=== PATIENT | female | born 1975 | race Caucasian/White ===

== ENCOUNTER 2017-07-22 11:39 | Emergency (ER) | payer MEDICARE, MEDICAID ==
[~2017-07-22] VITALS: Ht 154.9 cm; Wt 45.4 kg
--- NOTE | 2017-07-22 11:58 | ED Respiratory ---
General Stated Complaint: KINDEY FAILURE, SOB Source: patient, family Exam Limitations: no limitations History of Present Illness Date Seen by Provider: Jul 22, 2017 Time Seen by Provider: 11:58 Initial Comments This 42-year-old female presents with history of increasing shortness of breath. Patient has a history of renal failure and is in need of a third transplant. She's had no associated fever, chills, productive cough, nausea, vomiting, diarrhea, headache, or stiff neck. 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 She is on the transplant list at [facility]. Allergies and Home Medications Allergies Coded Allergies: meperidine (Verified Allergy, Unknown, 07/22/17) morphine (Verified Allergy, Unknown, 07/22/17) Home Medications Mycophenolate Mofetil 200 Mg/1 Ml Susp.recon, 200 MG PO, (Reported) Prednisone 5 Mg Tablet, 5 MG PO, (Reported) Tacrolimus 5 Mg Capsule, 5 MG PO, (Reported) Constitutional: No chills, No fever, malaise, weakness EENTM: no symptoms reported Respiratory: No cough, No hemoptysis, short of breath, No wheezing Cardiovascular: No chest pain, No palpitations Gastrointestinal: No abdominal pain, No diarrhea, No nausea, No vomiting Genitourinary: see HPI, decreased output, No dysuria Musculoskeletal: No back pain Skin: No change in color, No rash Psychiatric/Neurological: No Symptoms Reported Hematologic/Lymphatic: No Symptoms Reported Immunological/Allergic: no symptoms reported Past Rnzqpel-Mtylqw-Iuuolq Hx Patient Social History Recent Foreign Travel: No Contact w/Someone Who Travel: No Reviewed Nursing Assessment Reviewed/Agree w Nursing PMH: Yes Physical Exam Vital Signs Vital Sign - Last 12Hours 07/22/17 12:01 Temp 98.2 Pulse 86 Resp 18 B/P (MAP) 218/134 (162) Capillary Refill : General Appearance: WD/WN, mild distress Eyes: Bilateral Eye Normal Inspection HEENT: PERRL/EOMI, normal ENT inspection Neck: normal inspection Respiratory: lungs clear, normal breath sounds, no respiratory distress Cardiovascular: regular rate, rhythm, other (there is 2+ edema peripherally to the midportion of both lower extremities between the ankle and the knee.) Gastrointestinal: normal bowel sounds, non tender, soft Extremities: normal range of motion, non-tender, normal inspection Neurologic/Psychiatric: no motor/sensory deficits, alert, normal mood/affect, oriented x 3 Skin: normal color, warm/dry Progress/Results/Core Measures Suspected Sepsis SIRS Temperature: Pulse: Respiratory Rate: Laboratory Tests 07/22/17 12:25: White Blood Count 4.1L Blood Pressure / Mean: Laboratory Tests 07/22/17 12:25: Creatinine 5.58H, Platelet Count 76L, Total Bilirubin 0.7 Results/Orders Lab Results Laboratory Tests Test 07/22/17 12:25 07/22/17 13:22 Range/Units White Blood Count 4.1 L 4.3-11.0 10^3/uL Red Blood Count 1.88 L 4.35-5.85 10^6/uL Hemoglobin 5.5 *L 11.5-16.0 G/DL Hematocrit 16 *L 35-52 % Mean Corpuscular Volume 87 80-99 FL Mean Corpuscular Hemoglobin 29 25-34 PG Mean Corpuscular Hemoglobin Concent 34 32-36 G/DL Red Cell Distribution Width 15.0 H 10.0-14.5 % Platelet Count 76 L 130-400 10^3/uL Mean Platelet Volume 11.3 H 7.4-10.4 FL Neutrophils (%) (Auto) 61 42-75 % Lymphocytes (%) (Auto) 26 12-44 % Monocytes (%) (Auto) 8 0-12 % Eosinophils (%) (Auto) 5 0-10 % Basophils (%) (Auto) 1 0-10 % Neutrophils # (Auto) 2.5 1.8-7.8 X 10^3 Lymphocytes # (Auto) 1.0 1.0-4.0 X 10^3 Monocytes # (Auto) 0.3 0.0-1.0 X 10^3 Eosinophils # (Auto) 0.2 0.0-0.3 10^3/uL Basophils # (Auto) 0.0 0.0-0.1 10^3/uL Sodium Level 139 135-145 MMOL/L Potassium Level 3.9 3.6-5.0 MMOL/L Chloride Level 113 H 98-107 MMOL/L Carbon Dioxide Level 10 L 21-32 MMOL/L Anion Gap 16 H 5-14 MMOL/L Blood Urea Nitrogen 100 *H 7-18 MG/DL Creatinine 5.58 H 0.60-1.30 MG/DL Estimat Glomerular Filtration Rate 8 BUN/Creatinine Ratio 18 Glucose Level 85 70-105 MG/DL Calcium Level 7.9 L 8.5-10.1 MG/DL Total Bilirubin 0.7 0.1-1.0 MG/DL Aspartate Amino Transf (AST/SGOT) 13 5-34 U/L Alanine Aminotransferase (ALT/SGPT) 12 0-55 U/L Alkaline Phosphatase 42 40-136 U/L B-Type Natriuretic Peptide 1344.6 H <100.0 PG/ML Total Protein 6.0 L 6.4-8.2 GM/DL Albumin 3.4 3.2-4.5 GM/DL D-Dimer 1.19 H 0.00-0.49 UG/ML My Orders Orders - ORLANDO TREVIÑO MD Chest Pa/Lat (2 View) (07/22/17 11:59) Cbc With Automated Diff (07/22/17 11:59) Fibrin Degradation Products (07/22/17 11:59) BNP (07/22/17 11:59) Ua Culture If Indicated (07/22/17 11:59) Ekg Tracing (07/22/17 11:59) Comprehensive Metabolic Panel (07/22/17 11:59) Vital Signs/I&O Vital Sign - Last 12Hours 07/22/17 12:01 Temp 98.2 Pulse 86 Resp 18 B/P (MAP) 218/134 (162) Capillary Refill : Progress Note : Time: 13:42 Progress Note The patient's laboratory evaluation demonstrated a BUN of 100 and a creatinine of 6. The patient's BNP was elevated at approximately 1500. Chest x-ray demonstrated no acute evidence of CHF. EKG demonstrated a normal sinus rhythm without any acute current of injury or dysrhythmia. I placed call to the patient's hospital in [facility], which was full and did not have the ability to care for the patient. I placed a call to [facility] in [place] and I am awaiting their return call for transfer of the patient for emergent probable peritoneal dialysis. accepted the patient in transfer. The patient and requested transfer by private vehicle. Departure Impression Impression: Primary Impression: Renal failure Qualified Codes: N17.9 - Acute kidney failure, unspecified Disposition: HOME, SELF-CARE Condition: Unchanged Transfer Time Spoke to Accepting Phy: 15:[address] Bland at [facility] Transfer Time: 15:11 Transfer Facility: [facility] Method of Transfer: Private Vehicle Departure-Patient Inst. Referrals: NO,LOCAL PHYSICIAN (PCP/Family) Primary Care Physician ORLANDO TREVIÑO MD Jul 22, 2017 11:58
[2017-07-22] MEDS ORDERED: MYCO200S PO (12:04)
[2017-07-22] MEDS ORDERED: PRED5TAB PO (12:04)
[2017-07-22] MEDS ORDERED: TACR5CAP PO (12:04)
--- NOTE | 2017-07-22 12:18 | Diagnostic Imaging Report ---
Indication: Shortness of breath x3 weeks. History of kidney failure. Findings: There is obstructive pulmonary disease bilaterally. There are no consolidated infiltrates. No interstitial lung disease is seen. The heart is upper limits of normal. There is no hilar adenopathy. No pulmonary edema. Mild scoliosis noted of the thoracolumbar spine. IMPRESSION: There is mild bilateral hyperaeration of lungs with no acute infiltrates demonstrated. Dictated by: Dictated on workstation # [id number]
[2017-07-22 12:37] LABS: BASOPHILS % (AUTO) 1 % (0-10); EOSINOPHILS # (AUTO) 0.2 10^3/uL (0.0-0.3); EOSINOPHILS % (AUTO) 5 % (0-10); LYMPHOCYTES % (AUTO) 26 % (12-44); MEAN CORPUSCULAR HEMOGLOBIN 29 PG (25-34); MEAN CORPUSCULAR HGB CONC 34 G/DL (32-36); MEAN CORPUSCULAR VOLUME 87 FL (80-99); MEAN PLATELET VOLUME 11.3 FL (7.4-10.4); MONOCYTES # (AUTO) 0.3 X 10^3 (0.0-1.0); MONOCYTES % (AUTO) 8 % (0-12); NEUTROPHILS # (AUTO) 2.5 X 10^3 (1.8-7.8); NEUTROPHILS % (AUTO) 61 % (42-75); PLATELET COUNT 76 10^3/uL (130-400); RED BLOOD COUNT 1.88 10^6/uL (4.35-5.85); WHITE BLOOD COUNT 4.1 10^3/uL (4.3-11.0)
[2017-07-22 12:55] LABS: HEMATOCRIT 16 % (35-52); HEMOGLOBIN 5.5 G/DL (11.5-16.0)
[2017-07-22 12:58] LABS: ALBUMIN 3.4 GM/DL (3.2-4.5); BILIRUBIN,TOTAL 0.7 MG/DL (0.1-1.0); CALCIUM 7.9 MG/DL (8.5-10.1); CREATININE SERUM 5.58 MG/DL (0.60-1.30); POTASSIUM 3.9 MMOL/L (3.6-5.0)
[2017-07-22 15:51] LABS: BILIRUBIN,URINE NEGATIVE (NEGATIVE); CLARITY,URINE SLIGHTLY CLOUDY; COLOR,URINE YELLOW; GLUCOSE, URINE (UA) NEGATIVE (NEGATIVE); KETONES,URINE NEGATIVE (NEGATIVE); LEUKOCYTE ESTERASE ,URINE 3+ (NEGATIVE); NITRITE,URINE NEGATIVE (NEGATIVE); PH,URINE 7 (5-9); PROTEIN,URINE 4+ (NEGATIVE); UROBILINOGEN,URINE NORMAL (NORMAL)
[2017-07-22 15:52] VITALS: BP 212/119
[2017-07-22 16:12] LABS: BACTERIA,URINE FEW /HPF; WBC,URINE 50-100 /HPF
== END 2017-07-22 15:52 | disposition home or self-care (01) ==
LOC: ER 11:42
DX: N19 Unspecified kidney failure (principal); Z94.0 Kidney transplant status
CPT/HCPCS: 36415; 71046; 80053; 81000; 83880; 85025; 85379; 87088; 93005

== ENCOUNTER 2017-08-04 17:55 | Emergency (ER) | payer MEDICARE, MEDICAID ==
[~2017-08-04] VITALS: Ht 152.4 cm; Wt 51.7 kg
[~2017-08-04 17:55] MED LIST: MYCO200S PO; PRED5TAB PO; TACR5CAP PO
--- NOTE | 2017-08-04 19:15 | ED Cardiac General ---
History of Present Illness General Chief Complaint: Allergic Reaction Stated Complaint: L SIDE SWELLING Nursing Triage Note: PATIENT STATES THAT SHE WOKE UP IN THE MIDDLE OF THE NIGHT AND NOTICED HER TONGUE WAS SWOLLEN. LATER NOTICED HER FACE WAS SWOLLEN. Source: patient, other Exam Limitations: no limitations History of Present Illness Date Seen by Provider: Aug 04, 2017 Time Seen by Provider: 19:00 Initial Comments Patient presents to ER with some complaints of swelling in her tongue started about 4:00 this morning when she woke up she was not having any problems breathing or swallowing her own secretions or drinking however the patient decided to wait it out and see if it would go away. Her tongue swelling did go down however her face swelling got worse as well as her left upper extremity. She says she's had a history of a clot in her left upper extremity. She has a double-lumen dialysis catheter in her right subclavian as well as a history of having 2 kidney transplants and is on the list for a third transplant from [facility]. She says she got home from the hospital 2 days ago where she was transferred because of shortness of breath fluid overload picture to [facility] and from there was transferred up to [facility] where her transplant team was. She says since coming home they have put her on prednisone 40 mg a day for a couple weeks on a taper as well as switched her from CellCept to Prograf but she's not sure why the change that. She is not on any blood thinners. She denies any trauma. She says she was laying on her left side when she woke up with the swelling in her left arm face and neck. The edema in her legs is not much worse than usual she says. Patient denies any shortness of breath, chest pain, cough, fevers, chills, nausea, vomiting, abdominal pain or diarrhea or constipation. Allergies and Home Medications Allergies Coded Allergies: meperidine (Verified Allergy, Unknown, 07/22/17) morphine (Verified Allergy, Unknown, 07/22/17) Home Medications Mycophenolate Mofetil 200 Mg/1 Ml Susp.recon, 200 MG PO, (Reported) Prednisone 5 Mg Tablet, 5 MG PO, (Reported) Tacrolimus 5 Mg Capsule, 5 MG PO, (Reported) Review of Systems Constitutional: No chills, No fever EENTM: No Blurred Vision, No Double Vision Respiratory: Denies Cough, Denies Shortness of Air Cardiovascular: See HPI, Edema, Denies Lightheadedness, Denies Palpitations Gastrointestinal: Denies Abdomen Distended, Denies Abdominal Pain Genitourinary: Denies Burning, Denies Discharge Musculoskeletal: No back pain, No joint pain Skin: No pruritus, No rash Psychiatric/Neurological: Denies Headache, Denies Numbness Past Kyhnral-Rzcjol-Nbuxba Hx Patient Social History Alcohol Use: Denies Use Recreational Drug Use: No Smoking Status: Never a Smoker 2nd Hand Smoke Exposure: No Recent Foreign Travel: No Contact w/Someone Who Travel: No Recent Infectious Disease Expo: No Surgeries History of Surgeries: Yes (KIDNEY TRANSPLANT) Surgeries: Orthopedic Respiratory History of Respiratory Disorde: No Cardiovascular History of Cardiac Disorders: No Neurological History of Neurological Disord: No Genitourinary History of Genitourinary Disor: Yes Genitourinary Disorders: Kidney Infection, Renal Failure Gastrointestinal History of Gastrointestinal Di: No Musculoskeletal History of Musculoskeletal Dis: Yes Endocrine History of Endocrine Disorders: No HEENT History of HEENT Disorders: No Cancer History of Cancer: No Psychosocial History of Psychiatric Problem: No Blood Transfusions History of Blood Disorders: No Physical Exam Vital Signs Vital Sign - Last 12Hours 08/04/17 18:42 Temp 98.0 Pulse 87 Resp 20 B/P (MAP) 211/107 (141) Pulse Ox 98 O2 Delivery Room Air Capillary Refill : Less Than 3 Seconds General Appearance: No Apparent Distress, Thin HEENT: PERRL/EOMI, TMs Normal, Normal ENT Inspection, Pharynx Normal, No Tonsillar Enlargement (nonswollen tongue without any lesion) Neck: Full Range of Motion, Non Tender, Other (left-sided edematous swelling) Respiratory: Chest Non Tender, Lungs Clear, Normal Breath Sounds, No Accessory Muscle Use, No Respiratory Distress Cardiovascular: Regular Rate, Rhythm, Other (bilateral lower extremity edema 1 + pitting edema up to the knees. Calves are nontender, nonerythematous without cords palpable and is negative for Homans sign.) Gastrointestinal: Normal Bowel Sounds, Non Tender, Soft Extremity: Other (some swelling in the left shoulder, neck and upper extremity with a 1 out of 4 pulse left radial compared to a 2 out of 4 pulse palpable at right radial.) Neurologic/Psychiatric: Alert, Oriented x3 Skin: Normal Color, Warm/Dry Progress/Results/Core Measures Results/Orders Lab Results Laboratory Tests Test 08/04/17 19:33 Range/Units White Blood Count 6.6 4.3-11.0 10^3/uL Red Blood Count 2.66 L 4.35-5.85 10^6/uL Hemoglobin 7.8 L 11.5-16.0 G/DL Hematocrit 23 L 35-52 % Mean Corpuscular Volume 87 80-99 FL Mean Corpuscular Hemoglobin 29 25-34 PG Mean Corpuscular Hemoglobin Concent 34 32-36 G/DL Red Cell Distribution Width 13.7 10.0-14.5 % Platelet Count 54 L 130-400 10^3/uL Mean Platelet Volume 10.3 7.4-10.4 FL Neutrophils (%) (Auto) 81 H 42-75 % Lymphocytes (%) (Auto) 12 12-44 % Monocytes (%) (Auto) 5 0-12 % Eosinophils (%) (Auto) 3 0-10 % Basophils (%) (Auto) 0 0-10 % Neutrophils # (Auto) 5.3 1.8-7.8 X 10^3 Lymphocytes # (Auto) 0.8 L 1.0-4.0 X 10^3 Monocytes # (Auto) 0.3 0.0-1.0 X 10^3 Eosinophils # (Auto) 0.2 0.0-0.3 10^3/uL Basophils # (Auto) 0.0 0.0-0.1 10^3/uL Prothrombin Time 13.5 12.2-14.7 SEC INR Comment 1.0 0.8-1.4 Activated Partial Thromboplast Time 27 24-35 SEC Sodium Level 137 135-145 MMOL/L Potassium Level 3.2 L 3.6-5.0 MMOL/L Chloride Level 101 98-107 MMOL/L Carbon Dioxide Level 25 21-32 MMOL/L Anion Gap 11 5-14 MMOL/L Blood Urea Nitrogen 32 H 7-18 MG/DL Creatinine 2.63 H 0.60-1.30 MG/DL Estimat Glomerular Filtration Rate 20 BUN/Creatinine Ratio 12 Glucose Level 94 70-105 MG/DL Calcium Level 7.3 L 8.5-10.1 MG/DL Magnesium Level 1.9 1.8-2.4 MG/DL Total Bilirubin 0.9 0.1-1.0 MG/DL Aspartate Amino Transf (AST/SGOT) 26 5-34 U/L Alanine Aminotransferase (ALT/SGPT) 33 0-55 U/L Alkaline Phosphatase 53 40-136 U/L Troponin I < 0.30 <0.30 NG/ML C-Reactive Protein High Sensitivity 0.59 H 0.00-0.50 MG/DL B-Type Natriuretic Peptide 970.7 H <100.0 PG/ML Total Protein 5.3 L 6.4-8.2 GM/DL Albumin 3.1 L 3.2-4.5 GM/DL My Orders Orders - ALEJANDRINA ALATORRE Sekou BNP (08/04/17 19:02) Cbc With Automated Diff (08/04/17 19:02) Comprehensive Metabolic Panel (08/04/17 19:02) Hs C Reactive Protein (08/04/17 19:02) Magnesium (08/04/17 19:02) Protime With Inr (08/04/17 19:02) Partial Thromboplastin Time (08/04/17 19:02) Troponin I (08/04/17 19:02) Chest Pa/Lat (2 View) (08/04/17 19:02) Us Venous Upper Ext Lt (08/04/17 19:15) Us Left Up Ext Arterial [id number] (08/04/17 19:23) Ekg Tracing (08/04/17 19:27) Ct Angio Chest W (08/04/17 21:59) Vital Signs/I&O Vital Sign - Last 12Hours 08/04/17 18:42 Temp 98.0 Pulse 87 Resp 20 B/P (MAP) 211/107 (141) Pulse Ox 98 O2 Delivery Room Air Blood Pressure Mean: 141 Progress Note #1: Time: 19:21 Progress Note We have concern for possible DVT upper extremity that's causing swelling in her head neck and upper extremity. Because the decreased pulse a that maybe there is a compressive feature that's actually cutting off arterial flows were in order an ultrasound arterial just make sure there is good blood flow to that extremity however her Refill is less than 3 seconds on the left arm as well as it is warm and pulses are palpable 1 out of 4. We have discussed her clinical findings and the best possible imaging modalities with Dr. Sheth, radiology. Progress Note #2: Time: 20:33 Progress Note Hemoglobin is improved significantly from her last stay where it was 5. Progress Note #3: Time: 22:29 Progress Note After 2 attempts to get an IV failed the patient is saying that she would prefer to continue this outpatient workup. She has normal vital signs and is otherwise probably okay to get this workup outpatient however we will give her strict return precautions. She has a physician at [facility] and she will call that Monday morning to continue this workup. ECG Initial ECG Impression Date: Aug 04, 2017 Initial ECG Impression Time: 19:53 Initial ECG Rate: 72 Initial ECG Rhythm: Normal Sinus Initial ECG Intervals: MA (105) Initial ECG Impression: Normal, Nonspecific Changes Initial ECG Comparisson: Unchanged Comment No T-wave elevation or depression noted. Diagnostic Imaging Diagonstic Imaging: Ultrasound Plain Films/CT/US/NM/MRI: other (venous and arterial upper extremity left) Comments [facility] [place] [place] NAME: FARHAN CESAR [facility] REC#: [id number] PT STATUS: REG ER : 1975 PHYSICIAN: ALEJANDRINA ALATORRE MD ADMIT DATE: 08/04/17/ER Draft Date of Exam:08/04/17 US VENOUS UPPER EXT LT PROCEDURE: US venous upper extremity left. TECHNIQUE: Multiple realtime grayscale images were obtained of left upper extremity in various projections. Duplex Doppler and and color Doppler images were also obtained. INDICATION: Left upper extremity swelling Grayscale and color Doppler evaluation of left upper extremity deep veins reveal no intraluminal filling defect. There is normal venous flow. There is normal compressibility and response to augmentation. Venous flow in the left internal jugular vein is also confirmed. Impression: No ultrasound evidence of left upper extremity deep venous thrombosis. Dictated on workstation # [id number] Dict: 08/04/172039 Trans: 08/04/172041 [email or web address] [id number] Interpreted by: AIME SHETH MD Electronically signed by: [facility] [place] [place] NAME: FARHAN CESAR [facility] REC#: [id number] PT STATUS: REG ER : 1975 PHYSICIAN: ALEJANDRINA ALATORRE MD ADMIT DATE: 08/04/17/ER Draft Date of Exam:08/04/17 US LEFT UP EXT ARTERIAL [id number] INDICATION: Decreased left wrist pulses Grayscale and color Doppler evaluation of the left upper extremity arteries are performed with spectral analysis. There are normal arterial waveforms throughout the left upper extremity without evidence of filling defect or occlusion. No focal velocity elevation is identified to indicate a significant stenosis. No perivascular fluid collection is identified. IMPRESSION: Unremarkable left upper extremity arterial Doppler. Dictated on workstation # [id number] Dict: 08/04/172038 Trans: 08/04/172040 ABIGAIL [id number] Interpreted by: AIME SHETH MD Electronically signed by: Reviewed: Reviewed by Me, Discussed w/Radiologist Diagonstic Imaging: Xray Plain Films/CT/US/NM/MRI: chest (2v) Comments [facility] [place], [place] NAME: FARHAN CESAR [facility] REC#: [id number] PT STATUS: REG ER : 1975 PHYSICIAN: ALEJANDRINA ALATORRE MD ADMIT DATE: 08/04/17/ER Draft Date of Exam:08/04/17 CHEST PA/LAT (2 VIEW) INDICATION: Allergic reaction and upper extremity swelling PA and lateral views of the chest are obtained. Since 07/22/2017, there has been placement of dual-lumen right jugular central venous catheter with tip projecting over the lower superior vena cava. There has been increase in left basilar atelectasis and/or pneumonitis and associated left pleural fluid. There is a small amount of right pleural fluid as well. No pneumothorax is identified. There appear to be postoperative changes in the left axilla. IMPRESSION: Increasing left basilar atelectasis and/or pneumonitis with bilateral pleural fluid, greater on the left. There may be mild pulmonary venous congestion suggesting a component of congestive heart failure or hypervolemia and clinical correlation is recommended. Dictated on workstation # [id number] Dict: 08/04/172045 Trans: 08/04/172051 ABIGAIL [id number] Interpreted by: AIME SHETH MD Electronically signed by: Reviewed: Reviewed by Me Consults Consults : Consulting Physician: Gabby MORALES MD Consults Notes Discussed the case lab imaging and findings and he feels that when the patient had her double lumen dialysis catheter in her left subclavian it may have caused some stricturing that has progressed over time versus possible breast bowel syndrome and would recommend a CT angiogram with venous phase specifically also to evaluate for possible thoracic outlet syndrome. Departure Impression Impression: Primary Impression: Swelling of left side of face Additional Impression: Swelling of left upper extremity Disposition: HOME, SELF-CARE Condition: Stable Departure-Patient Inst. Decision time for Depature: 22:31 Referrals: NO,LOCAL PHYSICIAN (PCP/Family) Primary Care Physician Patient Instructions: Thoracic Outlet Syndrome (DC) Add. Discharge Instructions: Please follow up Monday morning with your primary care physician with a phone call to get this workup of your left sided face and upper extremity swelling worked up. Our concern is he may have either thoracic outlet syndrome or some kind of venous constriction secondary to previous catheter placements. Our recommendation is to do a CT angiogram looking at the venous phase. If your symptoms get worse or he becomes short of breath or start having chest pain or any other worrisome symptoms such as fever, nausea vomiting etc. please return to the ER immediately. Keep the swollen sides of your face and arm elevated at all times to allow gravity to help drain. All discharge instructions reviewed with patient and/or family. Voiced understanding. ALEJANDRINA ALATORRE Aug 04, 2017 19:15
[2017-08-04 19:42] LABS: BASOPHILS % (AUTO) 0 % (0-10); EOSINOPHILS # (AUTO) 0.2 10^3/uL (0.0-0.3); EOSINOPHILS % (AUTO) 3 % (0-10); HEMATOCRIT 23 % (35-52); HEMOGLOBIN 7.8 G/DL (11.5-16.0); LYMPHOCYTES # (AUTO) 0.8 X 10^3 (1.0-4.0); LYMPHOCYTES % (AUTO) 12 % (12-44); MEAN CORPUSCULAR HEMOGLOBIN 29 PG (25-34); MEAN CORPUSCULAR HGB CONC 34 G/DL (32-36); MEAN CORPUSCULAR VOLUME 87 FL (80-99); MEAN PLATELET VOLUME 10.3 FL (7.4-10.4); MONOCYTES # (AUTO) 0.3 X 10^3 (0.0-1.0); MONOCYTES % (AUTO) 5 % (0-12); NEUTROPHILS # (AUTO) 5.3 X 10^3 (1.8-7.8); NEUTROPHILS % (AUTO) 81 % (42-75); PLATELET COUNT 54 10^3/uL (130-400); RED BLOOD COUNT 2.66 10^6/uL (4.35-5.85); RED CELL DISTRIBUTION WIDTH 13.7 % (10.0-14.5); WHITE BLOOD COUNT 6.6 10^3/uL (4.3-11.0)
[2017-08-04 19:53] LABS: PROTHROMBIN TIME PATIENT 13.5 SEC (12.2-14.7)
[2017-08-04 20:24] LABS: ALANINE AMINOTRANSFERASE 33 U/L (0-55); ALBUMIN 3.1 GM/DL (3.2-4.5); ALKALINE PHOSPHATASE 53 U/L (40-136); BILIRUBIN,TOTAL 0.9 MG/DL (0.1-1.0); BUN/CREATININE RATIO 12; CALCIUM 7.3 MG/DL (8.5-10.1); CARBON DIOXIDE 25 MMOL/L (21-32); CHLORIDE 101 MMOL/L (98-107); CREATININE SERUM 2.63 MG/DL (0.60-1.30); GFR ESTIMATED 20; GLUCOSE 94 MG/DL (70-105); MAGNESIUM 1.9 MG/DL (1.8-2.4); POTASSIUM 3.2 MMOL/L (3.6-5.0); SODIUM 137 MMOL/L (135-145); TOTAL PROTEIN 5.3 GM/DL (6.4-8.2)
--- NOTE | 2017-08-04 20:42 | Diagnostic Imaging Report ---
INDICATION: Decreased left wrist pulses Grayscale and color Doppler evaluation of the left upper extremity arteries are performed with spectral analysis. There are normal arterial waveforms throughout the left upper extremity without evidence of filling defect or occlusion. No focal velocity elevation is identified to indicate a significant stenosis. No perivascular fluid collection is identified. IMPRESSION: Unremarkable left upper extremity arterial Doppler. Dictated by: Dictated on workstation # [id number]
--- NOTE | 2017-08-04 20:43 | Diagnostic Imaging Report ---
PROCEDURE: US venous upper extremity left. TECHNIQUE: Multiple realtime grayscale images were obtained of left upper extremity in various projections. Duplex Doppler and and color Doppler images were also obtained. INDICATION: Left upper extremity swelling Grayscale and color Doppler evaluation of left upper extremity deep veins reveal no intraluminal filling defect. There is normal venous flow. There is normal compressibility and response to augmentation. Venous flow in the left internal jugular vein is also confirmed. Impression: No ultrasound evidence of left upper extremity deep venous thrombosis. Dictated by: Dictated on workstation # [id number]
--- NOTE | 2017-08-04 20:52 | Diagnostic Imaging Report ---
INDICATION: Allergic reaction and upper extremity swelling PA and lateral views of the chest are obtained. Since 07/22/2017, there has been placement of dual-lumen right jugular central venous catheter with tip projecting over the lower superior vena cava. There has been increase in left basilar atelectasis and/or pneumonitis and associated left pleural fluid. There is a small amount of right pleural fluid as well. No pneumothorax is identified. There appear to be postoperative changes in the left axilla. IMPRESSION: Increasing left basilar atelectasis and/or pneumonitis with bilateral pleural fluid, greater on the left. There may be mild pulmonary venous congestion suggesting a component of congestive heart failure or hypervolemia and clinical correlation is recommended. Dictated by: Dictated on workstation # [id number]
[2017-08-04 22:45] VITALS: BP 175/101
== END 2017-08-04 22:43 | disposition home or self-care (01) ==
LOC: EDUNIT# 17:55 → ER 17:56
DX: R22.1 Localized swelling, mass and lump, neck (principal); R22.32 Localized swelling, mass and lump, left upper limb; Z87.440 Personal history of urinary (tract) infections; Z94.0 Kidney transplant status; Z79.52 Long term (current) use of systemic steroids; Z96.0 Presence of urogenital implants
CPT/HCPCS: 36415; 71046; 80053; 83735; 83880; 84484; 85025; 85610; 85730; 86141; 93931

== ENCOUNTER 2017-08-05 05:48 | Emergency (ER) | payer MEDICARE, MEDICAID ==
[~2017-08-05] VITALS: Ht 152.4 cm; Wt 51.7 kg
--- NOTE | 2017-08-05 06:42 | ED General ---
General Chief Complaint: General Problems/Pain Stated Complaint: DIALYSIS SITE BLEEDING Nursing Triage Note: PT TO ED 7 W/ C/O BLEEDING NOTED TO DIALYSIS CATH TO [facility]. STATES SHE WOKE THIS AM ET NOTICED BLEEDING. DENIES INJURY Nursing Sepsis Screen: No Definite Risk Source of Information: Patient Exam Limitations: No Limitations History of Present Illness Date Seen by Provider: Aug 05, 2017 Time Seen by Provider: 06:15 Initial Comments This 42-year-old woman presents to the emergency room from home with complaints of bleeding from her dialysis catheter site of the right chest. She woke with the bleeding and became concerned. She has a clot around the catheter but no active bleeding on arrival. She states the bleeding started in her sleep so she is uncertain if she disrupted the catheter in any way. She has no unusual pain, inflammation, or other problems around the site. She was seen last night by Dr. Gross for unilateral swelling. She no longer complains of those symptoms. See his note for more details. Patient had been seen in this ER July 22 with severe renal failure and anemia. She had been transferred to [place] at that time. While at [place] the dialysis catheter was placed last week according to patient. Review of patient's chart notes that she has had thrombocytopenia on both of her prior visits. The cause of this is uncertain but she is on antirejection therapy for renal transplant. These medications may be related to her anemia and thrombocytopenia. Allergies and Home Medications Allergies Coded Allergies: meperidine (Verified Allergy, Unknown, 07/22/17) morphine (Verified Allergy, Unknown, 07/22/17) Home Medications Mycophenolate Mofetil 200 Mg/1 Ml Susp.recon, 200 MG PO, (Reported) Prednisone 5 Mg Tablet, 5 MG PO, (Reported) Tacrolimus 5 Mg Capsule, 5 MG PO, (Reported) Constitutional: no symptoms reported Cardiovascular: see HPI Genitourinary: see HPI : No Skin: see HPI Psychiatric/Neurological: No Symptoms Reported Hematologic/Lymphatic: See HPI Past Deoxmtx-Kbppgy-Ppsliw Hx Patient Social History Alcohol Use: Denies Use Recreational Drug Use: No Smoking Status: Never a Smoker 2nd Hand Smoke Exposure: No Recent Foreign Travel: No Contact w/Someone Who Travel: No Recent Infectious Disease Expo: No Recent Hopitalizations: No Physical Abuse: No Sexual Abuse: No Mistreated: No Fear: No Surgeries History of Surgeries: Yes (KIDNEY TRANSPLANT) Surgeries: Kidney Transplant, Orthopedic, Vascular Surgery (double-lumen dialysis catheter in the right chest) Respiratory History of Respiratory Disorde: No Cardiovascular History of Cardiac Disorders: No Neurological History of Neurological Disord: No Genitourinary History of Genitourinary Disor: Yes Genitourinary Disorders: Kidney Infection, Renal Failure (end-stage renal failure) Gastrointestinal History of Gastrointestinal Di: No Musculoskeletal 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) Endocrine History of Endocrine Disorders: No HEENT History of HEENT Disorders: No Cancer History of Cancer: No Psychosocial History of Psychiatric Problem: No Suicide Risk Score: 0 Blood Transfusions History of Blood Disorders: Yes (anemia, thrombocytopenia) Physical Exam Vital Signs Vital Sign - Last 12Hours 08/05/17 06:14 Temp 99.1 Pulse 95 Resp 20 B/P (MAP) 167/106 (126) Pulse Ox 97 O2 Delivery Room Air Capillary Refill : Less Than 3 Seconds General Appearance: No Apparent Distress, WD/WN HEENT: Normal ENT Inspection Respiratory: Lungs Clear, Normal Breath Sounds, No Accessory Muscle Use, No Respiratory Distress Cardiovascular: Regular Rate, Rhythm, No Edema, No Murmur Extremity: Other (congenital malformation of the upper extremities) Neurologic/Psychiatric: Alert, Oriented x3, No Motor/Sensory Deficits, Normal Mood/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 Clot formed around the catheter site.) Progress/Results/Core Measures Suspected Sepsis Recent Fever Within 48 Hours: No Infection Criteria Present: None New/Unexplained Altered Menta: No Sepsis Screen: No Definite Risk Sepsis Diagnosis: SIRS Temperature:99.1 Pulse: 95 Respiratory Rate: 20 Blood Pressure 167 /106 Mean: 126 Results/Orders Vital Signs/I&O Vital Sign - Last 12Hours 08/05/17 06:14 Temp 99.1 Pulse 95 Resp 20 B/P (MAP) 167/106 (126) Pulse Ox 97 O2 Delivery Room Air Capillary Refill : Less Than 3 Seconds Blood Pressure Mean: 126 Progress Note : Progress Note The catheter site was cleaned with chlorhexidine and water to allow for better inspection of the sutures and insertion site. Sutures are intact. With cleaning there was some very subtle oozing of blood from around the catheter insertion that resolved with brief direct pressure on the wound site. There was no active bleeding at the time of discharge. Chart was reviewed and patient was noted to have a trend of thrombocytopenia, possibly related to her medications. This was discussed with her and the importance of follow-up was emphasized. See discharge instructions. She was advised to call her doctors on Monday and read the discharge instructions to them. Departure Impression Impression: Primary Impression: Postoperative hemorrhage from incision Additional Impression: Thrombocytopenia Disposition: HOME, SELF-CARE Condition: Improved Departure-Patient Inst. Decision time for Depature: 06:30 Referrals: NO,LOCAL PHYSICIAN (PCP/Family) Primary Care Physician Patient Instructions: NO INSTRUCTIONS GIVEN Add. Discharge Instructions: If bleeding resumes, apply direct pressure with some sterile gauze. If bleeding does not resolve after 10 minutes of direct pressure, or if bleeding is severe, return to the emergency room. Your platelets are low (thrombocytopenia). This can impair your bodies ability to stop the bleeding and clot blood. This needs to be monitored very closely by your physicians. Please contact both of your doctors on Monday for follow-up. You should be seen by one of your physicians early next week as soon as possible. Please present these discharge instructions to your doctors. All discharge instructions reviewed with patient and/or family. Voiced understanding. LEOBARDO RAMON MD Aug 05, 2017 06:42
[2017-08-05 06:56] VITALS: BP 0/0
== END 2017-08-05 06:56 | disposition home or self-care (01) ==
LOC: EDUNIT# 05:48 → ER 05:50
DX: T81.89XA Other complications of procedures, not elsewhere classified, initial encounter (principal); D72.829 Elevated white blood cell count, unspecified; N18.9 Chronic kidney disease, unspecified; Z99.2 Dependence on renal dialysis; Z88.5 Allergy status to narcotic agent; Z79.52 Long term (current) use of systemic steroids; Z94.0 Kidney transplant status
CPT/HCPCS: 99281

== ENCOUNTER 2017-08-10 23:09 | Emergency (ER) | payer MEDICARE, MEDICAID ==
[~2017-08-10] VITALS: Ht 152.4 cm; Wt 51.7 kg
[2017-08-10 23:57] LABS: BASOPHILS % (AUTO) 0 % (0-10); EOSINOPHILS # (AUTO) 0.2 10^3/uL (0.0-0.3); EOSINOPHILS % (AUTO) 4 % (0-10); LYMPHOCYTES # (AUTO) 1.2 X 10^3 (1.0-4.0); LYMPHOCYTES % (AUTO) 22 % (12-44); MEAN CORPUSCULAR HEMOGLOBIN 29 PG (25-34); MEAN CORPUSCULAR HGB CONC 33 G/DL (32-36); MEAN CORPUSCULAR VOLUME 87 FL (80-99); MEAN PLATELET VOLUME 10.5 FL (7.4-10.4); MONOCYTES # (AUTO) 0.3 X 10^3 (0.0-1.0); MONOCYTES % (AUTO) 5 % (0-12); NEUTROPHILS # (AUTO) 3.7 X 10^3 (1.8-7.8); NEUTROPHILS % (AUTO) 68 % (42-75); PLATELET COUNT 98 10^3/uL (130-400); RED BLOOD COUNT 2.06 10^6/uL (4.35-5.85); RED CELL DISTRIBUTION WIDTH 13.9 % (10.0-14.5); WHITE BLOOD COUNT 5.4 10^3/uL (4.3-11.0)
[2017-08-11 00:01] LABS: HEMATOCRIT 18 % (35-52)
[2017-08-11 00:08] LABS: INR 1.1 (0.8-1.4); PROTHROMBIN TIME PATIENT 13.8 SEC (12.2-14.7)
[2017-08-11 00:10] LABS: BILIRUBIN,URINE NEGATIVE (NEGATIVE); CLARITY,URINE BLOODY; COLOR,URINE RED; GLUCOSE, URINE (UA) NEGATIVE (NEGATIVE); KETONES,URINE 1+ (NEGATIVE); LEUKOCYTE ESTERASE ,URINE NEGATIVE (NEGATIVE); NITRITE,URINE NEGATIVE (NEGATIVE); PH,URINE 8 (5-9); PROTEIN,URINE 4+ (NEGATIVE); UROBILINOGEN,URINE NORMAL (NORMAL)
[2017-08-11 00:18] LABS: ALBUMIN 2.9 GM/DL (3.2-4.5); BILIRUBIN,TOTAL 0.8 MG/DL (0.1-1.0); CALCIUM 7.1 MG/DL (8.5-10.1); CREATININE SERUM 3.53 MG/DL (0.60-1.30); POTASSIUM 3.2 MMOL/L (3.6-5.0)
[2017-08-11 00:42] LABS: BACTERIA,URINE TRACE /HPF; RBC,URINE TNTC /HPF
--- NOTE | 2017-08-11 02:25 | ED General ---
General Chief Complaint: -Female Stated Complaint: POSS UTI,BLOOD IN URINE Nursing Triage Note: PT REPORTS THAT SHE HAS BEEN URINATING BLOOD SINCE APPROX 2200. SHE IS C/O ABD PRESSURE. UPON ASSESSMENT, PT HAS APPROX 150 CC OF BRIGHT RED BLOOD SOAKING THROUGH HER CLOTHES. Nursing Sepsis Screen: No Definite Risk Source of Information: Patient Exam Limitations: No Limitations History of Present Illness Date Seen by Provider: Aug 10, 2017 Time Seen by Provider: 23:13 Initial Comments This 42-year-old woman presents to the emergency room with complaints of pelvic pain, inability to urinate, and leaking of bloody urine from the urethra. These symptoms seemed to start within the last 24 hours. She has end-stage renal failure and is on dialysis. She was to have dialysis today (August 10). However, she did not go to dialysis because she did not feel well. She has a distended bladder on palpation. Tsang catheter was placed upon assessment which yielded over 300 mL of grossly bloody urine. She had immediate relief of the pelvic pain and pressure after Tsang was placed. Patient is a somewhat poor historian and her history develops throughout the course of her ER visit. She has a insurance investigator at [facility] in [place], possibly Dr. Dukes. Her primary care provider is Dr. Myers at [facility] in [place]. She is a resident of [place], [place]. Patient revealed late in her ER visit that she is a transplant patient and recently had a renal biopsy performed at [facility] 1-2 weeks ago. The bleeding just started today. Patient has been seen here 3 previous times within the last month. On July 22 she was found to have severe anemia and was transferred to [facility] in [place]. She has also been seen for unilateral swelling and for bleeding at her dialysis catheter site. She was noted to have thrombocytopenia and anemia on her last visit to the ER and was given clear instructions to follow-up immediately with her primary care teams. Allergies and Home Medications Allergies Coded Allergies: meperidine (Verified Allergy, Unknown, 07/22/17) morphine (Verified Allergy, Unknown, 07/22/17) Home Medications Mycophenolate Mofetil 200 Mg/1 Ml Susp.recon, 200 MG PO, (Reported) Prednisone 5 Mg Tablet, 5 MG PO, (Reported) Tacrolimus 5 Mg Capsule, 5 MG PO, (Reported) Constitutional: no symptoms reported EENTM: no symptoms reported Respiratory: no symptoms reported Cardiovascular: no symptoms reported Gastrointestinal: no symptoms reported Genitourinary: see HPI, hematuria : No Musculoskeletal: no symptoms reported Skin: no symptoms reported Psychiatric/Neurological: No Symptoms Reported Hematologic/Lymphatic: No Symptoms Reported Immunological/Allergic: no symptoms reported Past Ijmexte-Lqwjpd-Ogzgte Hx Patient Social History Alcohol Use: Denies Use Recreational Drug Use: No Smoking Status: Never a Smoker 2nd Hand Smoke Exposure: No Recent Foreign Travel: No Contact w/Someone Who Travel: No Recent Infectious Disease Expo: No Recent Hopitalizations: No Surgeries History of Surgeries: Yes (KIDNEY TRANSPLANT) Surgeries: Kidney Transplant, Orthopedic, Vascular Surgery Respiratory History of Respiratory Disorde: No Cardiovascular History of Cardiac Disorders: No Neurological History of Neurological Disord: No Reproductive System : No Genitourinary History of Genitourinary Disor: Yes Genitourinary Disorders: Kidney Infection, Renal Failure Gastrointestinal History of Gastrointestinal Di: No 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) Endocrine History of Endocrine Disorders: No HEENT History of HEENT Disorders: No Cancer History of Cancer: No Psychosocial History of Psychiatric Problem: No Integumentary History of Skin or Integumenta: No Blood Transfusions History of Blood Disorders: Yes (anemia, thrombocytopenia) Physical Exam Vital Signs Vital Signs - First Documented 08/10/17 23:15 Temp 97.8 Pulse 103 Resp 20 B/P (MAP) 179/133 (148) Pulse Ox 97 O2 Delivery Room Air Capillary Refill : Less Than 3 Seconds General Appearance: No Apparent Distress, WD/WN HEENT: PERRL/EOMI, Normal ENT Inspection Neck: Normal Inspection Respiratory: Lungs Clear, Normal Breath Sounds, No Accessory Muscle Use, No Respiratory Distress Cardiovascular: Regular Rate, Rhythm, No Edema, No Murmur Gastrointestinal: Normal Bowel Sounds, Soft, Tenderness (tenderness in the lower abdomen with distended bladder) Genital/Rectal: Other (grossly bloody urine oozing from the urethra) Extremity: Normal Capillary Refill, No Pedal Edema, Other (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) Neurologic/Psychiatric: Alert, Oriented x3, No Motor/Sensory Deficits, Normal 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, 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 Norm as Tested Skin: Normal Color, Warm/Dry Progress/Results/Core Measures Suspected Sepsis Recent Fever Within 48 Hours: No Infection Criteria Present: None New/Unexplained Altered Menta: No Sepsis Screen: No Definite Risk Sepsis Diagnosis: SIRS Temperature:97.8 Pulse: 103 Respiratory Rate: 20 Laboratory Tests 08/10/17 23:45: White Blood Count 5.4 Blood Pressure 179 /133 Mean: 148 Laboratory Tests 08/10/17 23:45: Creatinine 3.53#H, INR Comment 1.1, Platelet Count 98L, Total Bilirubin 0.8 Results/Orders Lab Results Laboratory Tests Test 08/10/17 23:45 08/10/17 23:55 08/11/17 02:30 Range/Units White Blood Count 5.4 4.3-11.0 10^3/uL Red Blood Count 2.06 L 4.35-5.85 10^6/uL Hemoglobin 6.0 #*L 5.0 *L 11.5-16.0 G/DL Hematocrit 18 *L 15 *L 35-52 % Mean Corpuscular Volume 87 80-99 FL Mean Corpuscular Hemoglobin 29 25-34 PG Mean Corpuscular Hemoglobin Concent 33 32-36 G/DL Red Cell Distribution Width 13.9 10.0-14.5 % Platelet Count 98 L 130-400 10^3/uL Mean Platelet Volume 10.5 H 7.4-10.4 FL Neutrophils (%) (Auto) 68 42-75 % Lymphocytes (%) (Auto) 22 12-44 % Monocytes (%) (Auto) 5 0-12 % Eosinophils (%) (Auto) 4 0-10 % Basophils (%) (Auto) 0 0-10 % Neutrophils # (Auto) 3.7 1.8-7.8 X 10^3 Lymphocytes # (Auto) 1.2 1.0-4.0 X 10^3 Monocytes # (Auto) 0.3 0.0-1.0 X 10^3 Eosinophils # (Auto) 0.2 0.0-0.3 10^3/uL Basophils # (Auto) 0.0 0.0-0.1 10^3/uL Prothrombin Time 13.8 12.2-14.7 SEC INR Comment 1.1 0.8-1.4 Activated Partial Thromboplast Time 28 24-35 SEC Sodium Level 141 135-145 MMOL/L Potassium Level 3.2 L 3.6-5.0 MMOL/L Chloride Level 103 98-107 MMOL/L Carbon Dioxide Level 25 21-32 MMOL/L Anion Gap 13 5-14 MMOL/L Blood Urea Nitrogen 29 H 7-18 MG/DL Creatinine 3.53 #H 0.60-1.30 MG/DL Estimat Glomerular Filtration Rate 14 BUN/Creatinine Ratio 8 Glucose Level 119 H 70-105 MG/DL Calcium Level 7.1 L 8.5-10.1 MG/DL Total Bilirubin 0.8 0.1-1.0 MG/DL Aspartate Amino Transf (AST/SGOT) 16 5-34 U/L Alanine Aminotransferase (ALT/SGPT) 16 0-55 U/L Alkaline Phosphatase 60 40-136 U/L Total Protein 5.0 L 6.4-8.2 GM/DL Albumin 2.9 L 3.2-4.5 GM/DL Urine Color RED H Urine Clarity BLOODY H Urine pH 8 5-9 Urine Specific [place] 1.015 L 1.016-1.022 Urine Protein 4+ NEGATIVE Urine Glucose (UA) NEGATIVE NEGATIVE Urine Ketones 1+ H NEGATIVE Urine Nitrite NEGATIVE NEGATIVE Urine Bilirubin NEGATIVE NEGATIVE Urine Urobilinogen NORMAL NORMAL MG/DL Urine Leukocyte Esterase NEGATIVE NEGATIVE Urine RBC (Auto) 4+ H NEGATIVE Urine RBC TNTC H /HPF Urine WBC NONE /HPF Urine Squamous Epithelial Cells NONE /HPF Urine Crystals NONE /LPF Urine Bacteria TRACE /HPF Urine Casts NONE /LPF Urine Mucus SMALL H /LPF Urine Culture Indicated YES Micro Results Microbiology 08/10/17 Urine Culture - Preliminary, Resulted Strep Or Related Genus My Orders Orders - LEOBARDO RAMON MD Ua Culture If Indicated (08/10/17 23:13) Cbc With Automated Diff (08/10/17 23:35) Comprehensive Metabolic Panel (08/10/17 23:35) Protime With Inr (08/10/17 23:35) Partial Thromboplastin Time (08/10/17 23:35) Red Cells Leukocytes Reduced (08/10/17 23:39) Type And Screen (08/10/17 23:39) Saline Lock/Iv-Start (08/11/17 00:26) Tsang Cath Insertion (08/11/17 00:26) Urine Culture (08/10/17 23:55) Hemoglobin And Hematocrit (08/11/17 02:25) Ct Abdomen/Pelvis Wo (08/11/17 02:53) Vital Signs/I&O Capillary Refill : Less Than 3 Seconds Blood Pressure Mean: 148 Progress Note : Progress Note Tsang catheter was placed during assessment. At least 300 mL of grossly bloody urine was immediately emptied in the catheter. Patient felt immediate relief with placement of the catheter. Patient was found to be severely anemic. 2 units of packed red blood cells were ordered for transfusion. Attempts to transfer patient to [facility] or [facility] in [place] were unsuccessful as both hospitals were on ICU diversion. Admission by Dr. Carl at [facility] was considered but patient's hemoglobin dropped from 6.0 to 5.0 after about 3 hours. He therefore did not want to accept her as a medical floor patient. Patient did not want to return to [facility] where her biopsy was performed. [facility] was selected as the nearest alternative to [place]. The transfer center suggested that the patient be assessed in the ER prior to determining disposition to the floor or ICU. Transfer was accepted by Dr. Salazar in the ER at 03:50. Patient's vital signs remained stable throughout her ER stay. Diagnostic Imaging Diagonstic Imaging: CT Plain Films/CT/US/NM/MRI: abdomen, pelvis Comments CT scan abdomen and pelvis without contrast viewed by me and [employer] report reviewed. 1. There is a small right pleural effusion with adjacent consolidation. 2. Marked atrophy of the [place] kidneys. 3. Presumably transplanted kidney in the left lower quadrant with hyperattenuation in the excretory system, with a bandlike area of hyperattenuation at the anterior margin. This could reflect hemorrhage given history of hematuria, and/or excretory contrast. 4. Transplanted kidney has moderate hydronephrosis and cortical thickening 5. Tsang catheter in the bladder with the marked with heterogeneous and hyperattenuating contents suggestive of blood products/hematoma. 6. Coarsely calcified soft tissue structure in the right lower quadrant, could reflect old renal transplant Departure Impression Impression: Primary Impression: End stage renal failure on dialysis Additional Impressions: Severe anemia Gross hematuria Thrombocytopenia Disposition: XFER SHT-TRM HOSP Condition: Improved Transfer Time Spoke to Accepting Phy: 03:50 Transfer Progress Notes Transfer excepted by Dr. Salazar in the emergency room. Transfer Time: 05:00 Transfer Facility: [facility] Method of Transfer: EMS Departure-Patient Inst. Referrals: NO,LOCAL PHYSICIAN (PCP/Family) Primary Care Physician LEOBARDO RAMON MD Aug 11, 2017 02:25
[2017-08-11 02:43] VITALS: BP 173/98
[2017-08-11 02:55] VITALS: BP 168/101
[2017-08-11 03:15] VITALS: BP 184/100
[2017-08-11 04:26] VITALS: BP 180/105
[2017-08-11 04:39] VITALS: BP 187/108
[2017-08-11 05:00] VITALS: BP 165/101
--- NOTE | 2017-08-11 05:34 | Diagnostic Imaging Report ---
PROCEDURE: CT abdomen and pelvis without contrast. TECHNIQUE: Multiple contiguous axial images were obtained through the abdomen and pelvis without the use of intravenous contrast. INDICATION: Hematuria There are bilateral pleural effusions layering out to a depth of 1 cm bilaterally. There is some infiltrate in the left lower lobe. There is minimal right basilar atelectasis. Liver appears normal. The gallbladder is present. Pancreas is unremarkable. The spleen is not enlarged. The [place] kidneys are severely atrophied. There is a transplant kidney in the left iliac fossa. There is hyperdense material within the renal collecting system that may be blood. Urinary bladder also appears be filled with blood. There is a Tsang catheter in urinary bladder. Intestines are unremarkable. There is no intraperitoneal free air or free fluid. Impression: Hydronephrosis of the transplant kidney with increased density in portions of the collecting system suspicious for hemorrhage. There are also appears to be a large amount of blood in the urinary bladder. I agree with preliminary interpretation. Dictated by: Dictated on workstation # [id number]
== END 2017-08-11 05:00 | disposition short-term general hospital (02) ==
LOC: EDUNIT# 23:09 → ER 23:10
DX: N18.6 End stage renal disease (principal); D64.9 Anemia, unspecified; R31.0 Gross hematuria; D69.6 Thrombocytopenia, unspecified; Z99.2 Dependence on renal dialysis; Z88.5 Allergy status to narcotic agent; Z79.52 Long term (current) use of systemic steroids; Z94.0 Kidney transplant status
CPT/HCPCS: 36415; 51702; 74176; 80053; 81000; 85014; 85018; 85025; 85610; 85730; 86850; 86900; 86901; 86920; 87088

== ENCOUNTER 2017-09-29 13:58 | Emergency (ER) | payer MEDICARE, MEDICAID ==
[~2017-09-29] VITALS: Ht 152.4 cm; Wt 41.7 kg
--- NOTE | 2017-09-29 15:57 | ED EENT ---
History of Present Illness General Chief Complaint: Ear Problems Stated Complaint: L EAR SWOLLEN Nursing Triage Note: ARRIVED VIA AMB TO ROOM 08 WITH COMPLAINTS OF RIGHT EAR SWELLING AND PAIN. STATES IT DOES NOT HURT INSIDE THE EAR ET ONLY WHERE THE SWELLING IS. PT RECIEVES DIALYSIS ,, AND SAT. Source: patient, spouse Exam Limitations: no limitations History of Present Illness Date Seen by Provider: Sep 29, 2017 Time Seen by Provider: 15:57 Initial Comments Patient presents to the emergency department with complaints of right external ear swelling and pain beginning yesterday. Worse today. Patient states she receives dialysis Monday, , and Monday. Has not missed any dialysis days. Denies known injury. Timing/Duration: gradual, yesterday Location: ear (R) (Right external ear) Prearrival Treatment: other (Warm and cold packs without improvement.) Modifying Factors: Worse With Other (Worse with palpation) Allergies and Home Medications Allergies Coded Allergies: meperidine (Verified Allergy, Unknown, 07/22/17) morphine (Verified Allergy, Unknown, 07/22/17) Home Medications Clindamycin HCl 300 Mg Capsule, 300 MG PO TID Prescribed by: LAKIA ARAUJO on 09/29/17 1649 Piperonyl Butoxide/Pyrethrins 59 Ml Shampoo, 59 ML TP UD use as directed by the returned goods receiving clerk 1. Repeat in 7 days. Prescribed by: LAKIA ARAUJO on 09/29/17 1649 Patient Home Medication List Home Medication List Reviewed: Yes Review of Systems Constitutional: No chills, No fever, No malaise Eyes: No Symptoms Reported Ears: See HPI, Denies Dizziness, Pain (Right external ear pain), Denies Tinnitus, Denies Bloody Discharge, Denies Clear Discharge, Denies Purulent Discharge, Denies Serosanguinous Discharge, Denies Previous Injury Nose: no symptoms reported Mouth: no symptoms reported Throat: no symptoms reported Respiratory: no symptoms reported Cardiovascular: no symptoms reported Gastrointestinal: no symptoms reported Musculoskeletal: no symptoms reported Skin: no symptoms reported Neurological: No Symptoms Reported Immunological/Allergic: no symptoms reported All Other Systems Reviewed Negative Unless Noted: Yes (Negative excepted noted.) Past Bxgjmht-Lxdqbk-Dkakzd Hx Patient Social History Alcohol Use: Denies Use Recreational Drug Use: No Smoking Status: Never a Smoker 2nd Hand Smoke Exposure: No Recent Foreign Travel: No Contact w/Someone Who Travel: No Recent Infectious Disease Expo: No Recent Hopitalizations: No Surgeries History of Surgeries: Yes (KIDNEY TRANSPLANT) Surgeries: Kidney Transplant, Orthopedic, Vascular Surgery Respiratory History of Respiratory Disorde: No Cardiovascular History of Cardiac Disorders: No Neurological History of Neurological Disord: No Genitourinary History of Genitourinary Disor: Yes Genitourinary Disorders: Kidney Infection, Renal Failure Gastrointestinal History of Gastrointestinal Di: No 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) Endocrine History of Endocrine Disorders: No HEENT History of HEENT Disorders: No Cancer History of Cancer: No Psychosocial History of Psychiatric Problem: No Integumentary History of Skin or Integumenta: No Blood Transfusions History of Blood Disorders: Yes (anemia, thrombocytopenia) Reviewed Nursing Assessment Reviewed/Agree w Nursing PMH: Yes Family Medical History Significant Family History: No Pertinent Family Hx Physical Exam Vital Signs Vital Signs - First Documented 09/29/17 14:35 Temp 98.7 Pulse 70 Resp 18 B/P (MAP) 185/107 (133) Pulse Ox 97 General Appearance: no apparent distress, other (thin, chronically ill- appearing female. No acute distress. An extensive amount of nits noted on the patient's hair shafts. ) Eyes: bilateral eye normal inspection, bilateral eye PERRL, bilateral eye EOMI Ears: right ear other (Swelling of the right superior auricle with fluctuance. No evidence of erythema, warmth, or superficial injury. No evidence of ecchymosis.), left ear auricle normal, bilateral ear canal normal, bilateral ear TM normal Nose: normal inspection Mouth/Throat: normal mouth inspection, pharynx normal Neck: non-tender, supple, normal inspection Cardiovascular: regular rate, rhythm, no murmur Respiratory: lungs clear, normal breath sounds, no respiratory distress, no accessory muscle use Neurologic/Psychiatric: alert, normal mood/affect, oriented x 3 Skin: normal color, warm/dry Additional Procedures : Progress Right external ear cleansed with chlorhexidine. 0.5 ml of 1 percent lidocaine infused into the dermis. An 18-gauge needle inserted into the fluctuant area of the right external ear. Approximately 3 mL of bloody fluid aspirated. Fluid Culture sent to the lab. Blood loss minimal. Patient tolerated the procedure well. Progress/Results/Core Measures Results/Orders My Orders Orders - LAKIA ARAUJO Lidocaine 1% (Xylocaine 1%) (09/29/17 16:15) Wound Culture (09/29/17 17:06) Vital Signs/I&O Vital Sign - Last 12Hours 09/29/17 09/29/17 14:35 16:53 Temp 98.7 Pulse 70 73 Resp 18 18 B/P (MAP) 185/107 (133) 204/115 Pulse Ox 97 98 Blood Pressure Mean: 133 Departure Communication (Admissions) Progress Notes Patient seen and evaluated. We'll plan for discharge to home with a Rx for oral antibiotics and Rid. Cultures sent to lab for testing. Patient instructed to follow-up with her PCP as an outpatient early next week. Impression Impression: Primary Impression: Hematoma of right external ear Qualified Codes: S00.431A - Contusion of right ear, initial encounter Additional Impression: Head lice Disposition: HOME, SELF-CARE Condition: Improved Departure-Patient Inst. Decision time for Depature: 16:45 Referrals: NO,LOCAL PHYSICIAN (PCP/Family) Primary Care Physician Patient Instructions: Contusion (DC), Head Lice (DC) Add. Discharge Instructions: All discharge instructions reviewed with patient and/or family. Voiced understanding. Continue usual home medications. Tylenol extra strength over- the-counter as directed for pain. Ice pack or heating pads as needed for pain and swelling. Treat all family members of the household with lice shampoo. Wash all bedding, clothing, and blankets in hot water and dry on hot. Follow- up with your primary care provider for recheck as an outpatient, call for appointment time. Return to the emergency department for worsened pain, swelling, redness, fever, drainage, or any other concerns. Scripts Piperonyl Butoxide/Pyrethrins (Rid Lice Killing Shampoo) 59 Ml Shampoo 59 ML TP UD, #1 EA 1 Refill use as directed by the returned goods receiving clerk 1. Repeat in 7 days. Prov: LAKIA ARAUJO 09/29/17 Clindamycin HCl (Cleocin HCl) 300 Mg Capsule 300 MG PO TID, #21 CAP 0 Refills Prov: LAKIA ARAUJO 09/29/17 LAKIA ARAUJO Sep 29, 2017 15:57
[2017-09-29] MEDS ORDERED: LIDOCAINE 1% INJ 50 ML (XYLOCAINE) VIAL IJ ONE (16:15)
[2017-09-29] MEDS ORDERED: CLIN300C3 PO (16:49)
[2017-09-29] MEDS ORDERED: PIPE59SH TP (16:49)
[2017-09-29 16:53] VITALS: BP 204/115
== END 2017-09-29 16:53 | disposition home or self-care (01) ==
LOC: EDUNIT# 13:58 → ER 14:01
DX: S00.431A Contusion of right ear, initial encounter (principal); B85.0 Pediculosis due to Pediculus humanus capitis; N18.6 End stage renal disease; Z99.2 Dependence on renal dialysis; Z88.5 Allergy status to narcotic agent; Z94.0 Kidney transplant status; Z87.448 Personal history of other diseases of urinary system; X58.XXXA Exposure to other specified factors, initial encounter
CPT/HCPCS: 87070; 87205; 99282